=== PATIENT | female | born 1955 | race Caucasian/White ===

== ENCOUNTER 2024-07-18 08:01 | Observation (INO) | payer MEDICARE, BC ==
[2024-07-12 11:49] LABS: BASOPHILS # (AUTO) 0.1 X10'3 (0-0.2); EOSINOPHILS # (AUTO) 0.2 X10'3 (0-0.9); HEMATOCRIT 44.3 % (35.0-45.0); HEMOGLOBIN 14.9 g/dl (12.0-16.0); LYMPHOCYTES # (AUTO) 2.7 X10'3 (1.1-4.8); LYMPHOCYTES % (AUTO) 27.2 % (21-51); MEAN CORPUSCULAR HEMOGLOBIN 30.8 PG (27.0-31.0); MEAN CORPUSCULAR HGB CONC 33.7 g/dL (33.0-36.5); MEAN CORPUSCULAR VOLUME 91.4 FL (78-98); MEAN PLATELET VOLUME 8.8 FL (7.4-10.4); MONOCYTES # (AUTO) 0.6 X10'3 (0-0.9); MONOCYTES % (AUTO) 6.4 % (2-12); NEUTROPHILS # (AUTO) 6.3 X10'3 (1.8-7.7); NEUTROPHILS % (AUTO) 63.4 % (42-75); PLATELET COUNT 266 X10'3 (140-440); RED BLOOD COUNT 4.85 X10'6 (4.20-5.60); RED CELL DISTRIBUTION WIDTH 13.4 % (11.5-14.5)
[2024-07-12 12:01] LABS: PROTHROMBIN TIME 11.2 SECONDS (9.0-12.0)
[2024-07-12 12:02] LABS: APTT 27 SECONDS (22-32); INR 1.1 INR
[2024-07-12 12:24] LABS: ALANINE AMINOTRANSFERASE 26 U/L (12-78); ALBUMIN 3.9 G/DL (3.4-5.0); ALKALINE PHOSPHATASE 76 IU/L (46-116); ANION GAP 6 (8-16); ASPARTATE AMINO TRANSFERASE 11 U/L (10-37); BILIRUBIN,TOTAL 0.9 MG/DL (0.1-1.0); BLOOD UREA NITROGEN 19 MG/DL (7-18); CALCIUM 9.3 MG/DL (8.5-10.1); CHLORIDE 107 MMOL/L (99-107); CREATININE 0.73 MG/DL (0.40-0.90); GLUCOSE 109 MG/DL (70-104); POTASSIUM 3.7 MMOL/L (3.5-5.1); SODIUM 142 MMOL/L (135-145); TOTAL CARBON DIOXIDE 28.6 MMOL/L (24-32); TOTAL PROTEIN 7.8 G/DL (6.4-8.2); eGFR 79 ML/MIN
[2024-07-18] VITALS (32 sets, daily range): BP systolic 127–155; BP diastolic 55–83; PULSE 50–72; RESP 7–20; TEMP 97.4–97.6; O2SAT 91–100
[~2024-07-18] VITALS: Ht 167.6 cm; Wt 94.4 kg
[2024-07-18] MEDS: gentamicin inj 300 MG in normal saline 100ml IV soln 100 ML IV ONE (05:30)
[2024-07-18] MEDS: clindamycin-Cleocin 900mg/D5W 50 ML IV ONE (05:30)
[~2024-07-18 08:01] MED LIST: ANAS1TAB10 PO; ASPI-529 PO
[2024-07-18] MEDS: ringers solution, lacted 1,000 ML IV SCH ×2 (08:58→10:55)
[2024-07-18] MEDS: famotidine 20mg tablet PO ONE (08:58)
[2024-07-18] MEDS ORDERED: BUPIVAcaine 2.5mg/ml inj 50ml vial (contains preservative) ONE (09:33)
[2024-07-18] MEDS ORDERED: methylene blue (5mg/ml) 50mg/10ml ampul IV ONE (09:33)
[2024-07-18] MEDS ORDERED: BUPIVACAINE liposomal/PF 13.3 MG/ML 10mL vial IM ONE ×2 (09:33→10:23)
[2024-07-18] MEDS: scopolamine 1MG/72H patch 1 PATCH PATCH.TD.3 TD ONE (10:08)
[2024-07-18] MEDS: aprepitant 40mg capsule PO ONE (10:09)
[2024-07-18] MEDS ORDERED: sevoflurane 250ml liquid IH ONE (10:15)
[2024-07-18] MEDS ORDERED: BUPIVAcaine/PF 2.5mg/ml (0.25%) 10ml vial ONE (10:23)
[2024-07-18] MEDS ORDERED: fentaNYL/PF 50MCG/1 ML 2ML syringe ONE (10:25)
[2024-07-18] MEDS ORDERED: midazolam 1 mg/ML 2ml injection ONE (10:26)
[2024-07-18] MEDS ORDERED: dexamethasone sod phosphate 4mg/ml inj. ONE (10:46)
[2024-07-18] MEDS ORDERED: propofol inj 20 ML IV ONE ×2 (10:46→12:43)
[2024-07-18] MEDS ORDERED: ondansetron/PF 4mg/2ml inj ONE (10:46)
[2024-07-18] MEDS ORDERED: morphine 4 MG/ML inj SYRINge IV PRN (10:55)
[2024-07-18] MEDS ORDERED: meperidine/PF 25mg/ml syringe IV PRN ×2 (10:55)
[2024-07-18] MEDS ORDERED: morphine 2 MG/ML inj. syringe IV PRN ×2 (10:55→13:25)
[2024-07-18] MEDS ORDERED: hydrALAZINE 20mg/ml inj. IV PRN (10:55)
[2024-07-18] MEDS ORDERED: proCHLORperazine 10 MG/2 ml inj IV PRN (10:55)
[2024-07-18] MEDS ORDERED: labetalol 20mg/4ml (5mg/ml) syringe IV PRN (10:55)
[2024-07-18] MEDS: BUPIVAcaine/PF 2.5 mg/ml (0.25%) 30ml vial IJ ONE (11:55)
[2024-07-18] MEDS: meperidine/PF 25mg/ml syringe IV PRN (13:20)
[2024-07-18] MEDS ORDERED: HYDROcodone/acetaminophen 5mg/325mg tablet PO PRN (13:25)
[2024-07-18] MEDS ORDERED: ondansetron/PF 4mg/2ml inj IV PRN (13:25)
[2024-07-18] MEDS: ondansetron/PF 4mg/2ml inj IV PRN (13:33)
[2024-07-18] MEDS: acetaminophen 1,000mg/100ml IV 100 ML IV PRN (13:43)
[2024-07-18] MEDS: clindamycin 600mg/D5W 50ml 50 ML IV SCH (17:55)
[2024-07-18] MEDS: acetaminophen 1,000mg/100ml IV 100 ML IV ONE (23:23)
[2024-07-19 02:00] VITALS: BP 111/53; PULSE 59; RESP 18; TEMP 97.4; O2SAT 93
[2024-07-19] MEDS: acetaminophen 325mg tablet PO PRN (04:45)
[2024-07-19 05:18] LABS: BASOPHILS % (AUTO) 0.2 % (0-1); EOSINOPHILS % (AUTO) 0 % (0-6); HEMATOCRIT 41.3 % (35.0-45.0); LYMPHOCYTES # (AUTO) 2.3 X10'3 (1.1-4.8); LYMPHOCYTES % (AUTO) 11.9 % (21-51); MEAN CORPUSCULAR HGB CONC 33.8 g/dL (33.0-36.5); MEAN CORPUSCULAR VOLUME 91.5 FL (78-98); MONOCYTES # (AUTO) 1.2 X10'3 (0-0.9); MONOCYTES % (AUTO) 6.3 % (2-12); NEUTROPHILS % (AUTO) 81.6 % (42-75); PLATELET COUNT 280 X10'3 (140-440); RED BLOOD COUNT 4.52 X10'6 (4.20-5.60); RED CELL DISTRIBUTION WIDTH 13.3 % (11.5-14.5); WHITE BLOOD COUNT 19.6 X10'3 (4.5-11.0)
[2024-07-19 08:57] VITALS: RESP 17; O2SAT 94
[2024-07-19 10:00] VITALS: BP 107/48; PULSE 73; RESP 18; TEMP 98; O2SAT 99
== END 2024-07-19 14:06 | disposition home or self-care (01) ==
LOC: PAS 08:01 → PACU 13:30 → SUR 3N 17:25
PROVIDERS: ADMIT Surgery; ATTEND Surgery
DX: C50.411 Malignant neoplasm of upper-outer quadrant of right female breast (principal); D64.89 Other specified anemias; N64.4 Mastodynia; R79.1 Abnormal coagulation profile; Z79.899 Other long term (current) drug therapy; Z98.890 Other specified postprocedural states
CPT/HCPCS: 19303; 36415; 38525; 38792; 80053; 82948; 85025; 85610; 85730; 86885; 86900; 86901; 93005; 96365; 96366; 96375; 96376; G0378; J0131; J0666; J1100; J1580; J2175; J2250; J2405; J2704; J3010; J3490; J7120; J8501; Q9968; 88305; 88307; 88342; A4215; A4615; A4618; A6253; A6446; A6449; A7000; C9250